=== PATIENT | male | born 1980 | race Caucasian/White ===

== ENCOUNTER 2017-03-17 13:00 | Emergency (ER) | payer BC, OTHER ==
--- NOTE | 2017-03-17 13:17 | PDOC ---
History of Present Illness - General Chief Complaint: Pain Stated Complaint: LEFT FOOT PAIN FOR 1 WEEK Time Seen by Provider: 03/17/17 13:06 History Source: Patient Exam Limitations: No Limitations - History of Present Illness Initial Comments: 03/17/17 13:08 03/17/17 13:11 This patient is an otherwise healthy 36-year-old male who presents emergency department with one week of left foot pain. Patient states he cannot remember any traumatic injuries, does state that possibly one week ago [place]. No bruising. No swelling. He has been taking Tylenol for pain with minimal relief. Patient states the pain is its worse when walking or when laying on his left side. PMH: denies (although, he states that he was told that he had renal insufficieny due to ASA) PSH: denies Meds: denies ALL: PCN --> unknown GENERAL/CONSTITUTIONAL: No: fever, chills, weakness, loss of appetite. MUSCULOSKELETAL: Yes: left foot pain No: back pain, neck pain, joint pain SKIN: No: lesions GENERAL: The patient is in no acute distress. EXTREMITIES: Normal range of motion, no edema, no bruising, no erythema, lateral metatarsal tenderness. 2+ DP, 2+ PT NEUROLOGICAL: sensation in tact, motor intact MUSCULOSKELETAL: Back non-tender to palpation, no CVA tenderness SKIN: Warm, Dry, normal turgor, no rashes or lesions noted. Past History - Past Medical History Allergies/Adverse Reactions: Allergies Allergy/AdvReac Type Severity Reaction Status Date / Time Penicillins Allergy Intermediate Rash Verified 03/17/17 13:06 Home Medications: Ambulatory Orders NK [No Known Home Medication] 03/17/17 Medical Decision Making - Medical Decision Making 03/17/17 13:17 Xray Will hold on motrin Will re assess *DC/Admit/Observation/Transfer Diagnosis at time of Disposition: Left foot pain - Discharge Dispostion Disposition: HOME Condition at time of disposition: Stable Admit: No - Referrals Referrals: Andrea Hinds MD [Staff Physician] - Eloy Aguirre MD [Staff Physician] - - Patient Instructions Printed Discharge Instructions: DI for Foot Pain Additional Instructions: Thank you for coming in to the ER today Please follow up with Ortho or podiatry Please return to the ER for any other concerns or complaints - Post Discharge Activity Work/School Note: Back to Work
[2017-03-17 13:28] VITALS: BP 128/69; PULSE 88; TEMP 98.2; BMI 27.8
== END 2017-03-17 14:06 | disposition home or self-care (01) ==
LOC: FER 13:00
DX: M79.672 Pain in left foot (principal); Z88.0 Allergy status to penicillin
CPT/HCPCS: 73630-TC-LT; 99282-25

== ENCOUNTER 2020-08-12 18:14 | Emergency (ER) | payer OTHER | END 2020-08-12 18:22 | disposition home or self-care (01) | LOC: JVIRT 18:14 | DX: Z20.822 Contact with and (suspected) exposure to COVID-19 (principal) | CPT/HCPCS: C9803; G2012-GT; U0003 ==

== ENCOUNTER 2022-08-01 10:52 | Emergency (ER) | payer OTHER ==
[2022-08-01 10:59] VITALS: BP 155/100; PULSE 118; RESP 18; TEMP 97.7; BMI 30.7
== END 2022-08-01 13:17 | disposition home or self-care (01) ==
LOC: JER 10:52
DX: F41.9 Anxiety disorder, unspecified (principal)
CPT/HCPCS: 99282-25

== ENCOUNTER 2022-10-15 04:59 | Day surgery (SDC) | payer OTHER ==
[2022-10-14 13:00] VITALS: BMI 32.1
[2022-10-15 14:35] VITALS: TEMP 97.1
[2022-10-15 15:10] VITALS: BP 127/90; PULSE 83; RESP 14
== END 2022-10-15 15:11 | disposition home or self-care (01) ==
LOC: JASU-ENDO 04:59
PROVIDERS: ATTEND Student in an Organized Health Care Education/Training Program
PROC: 0DB78ZX Excision of Stomach, Pylorus, Via Natural or Artificial Opening Endoscopic, Diagnostic (ICD-10-PCS; 2022-10-15)
PROC: 0DB68ZX Excision of Stomach, Via Natural or Artificial Opening Endoscopic, Diagnostic (ICD-10-PCS; 2022-10-15)
PROC: 0DB98ZX Excision of Duodenum, Via Natural or Artificial Opening Endoscopic, Diagnostic (ICD-10-PCS; principal; 2022-10-15 13:15)
DX: K25.9 Gastric ulcer, unspecified as acute or chronic, without hemorrhage or perforation (principal); K29.80 Duodenitis without bleeding; K20.90 Esophagitis, unspecified without bleeding; K29.50 Unspecified chronic gastritis without bleeding; B96.81 Helicobacter pylori [H. pylori] as the cause of diseases classified elsewhere
CPT/HCPCS: 88305-TC; 88342-TC

== ENCOUNTER 2022-12-31 04:55 | Day surgery (SDC) | payer OTHER ==
[2022-12-27 11:56] VITALS: BMI 32.1
[2022-12-31 09:10] VITALS: TEMP 98.1
[2022-12-31 15:26] VITALS: BP 105/75; PULSE 76; RESP 18
== END 2022-12-31 10:40 | disposition home or self-care (01) ==
LOC: JASU-ENDO 04:55
PROVIDERS: ATTEND Student in an Organized Health Care Education/Training Program
PROC: 0DB78ZX Excision of Stomach, Pylorus, Via Natural or Artificial Opening Endoscopic, Diagnostic (ICD-10-PCS; 2022-12-31)
PROC: 0DB68ZX Excision of Stomach, Via Natural or Artificial Opening Endoscopic, Diagnostic (ICD-10-PCS; principal; 2022-12-31 12:00)
DX: K29.50 Unspecified chronic gastritis without bleeding (principal); B96.81 Helicobacter pylori [H. pylori] as the cause of diseases classified elsewhere; K29.80 Duodenitis without bleeding; K20.90 Esophagitis, unspecified without bleeding
CPT/HCPCS: 88305-TC; 88342-TC

== ENCOUNTER 2023-05-01 05:08 | Day surgery (SDC) | payer OTHER ==
[2023-04-29 11:52] VITALS: BMI 33.5
[2023-05-01 09:01] LABS: PROTHROMBIN TIME (PATIENT) 11.6 SEC (9.7-13.0)
[2023-05-01 09:38] LABS: BASO % 0.9 % (0-2.0); EOS % 4.4 % (0-4.5); HEMATOCRIT 47.1 % (35.4-49); HEMOGLOBIN 16.3 GM/dL (11.7-16.9); MCH 32.1 pg (25.7-33.7); MCHC 34.7 g/dl (32.0-35.9); MEAN CELL VOLUME 92.5 fl (80-96); MEAN PLT VOLUME 8.4 fl (7.5-11.1); MONO % 6.6 % (3.8-10.2); NEUT % 53.1 % (42.8-82.8); PLATELET COUNT 189 10^3/uL (134-434); RDW 12.9 % (11.9-15.9); WHITE BLOOD COUNT 8.1 K/mm3 (4.0-10.0)
[2023-05-01] MEDS ORDERED: FENTANYL CITRATE/PF 50 MCG/ML VIAL ONE (10:42)
[2023-05-01] MEDS ORDERED: MIDAZOLAM HCL 2 MG/2 ML SINGLE DOSE VIAL ONE (10:42)
[2023-05-01] MEDS ORDERED: SODIUM CHLORIDE 500 ML IV SCH (10:50)
[2023-05-01] MEDS ORDERED: FENTANYL CITRATE/PF 50 MCG/ML VIAL IVPUSH ONE (11:00)
[2023-05-01] MEDS: MIDAZOLAM HCL 2 MG/2 ML SINGLE DOSE VIAL IVPUSH SCH ×2 (11:10→11:20)
[2023-05-01 13:08] VITALS: RESP 18
[2023-05-01 13:09] VITALS: TEMP 97.2
[2023-05-01 13:25] VITALS: BP 104/71; PULSE 87
== END 2023-05-01 13:47 | disposition home or self-care (01) ==
LOC: JRADIR 05:08
PROVIDERS: ATTEND Internal Medicine
PROC: 0TB13ZX Excision of Left Kidney, Percutaneous Approach, Diagnostic (ICD-10-PCS; principal; 2023-05-01)
DX: N05.8 Unspecified nephritic syndrome with other morphologic changes (principal); N08 Glomerular disorders in diseases classified elsewhere; N26.9 Renal sclerosis, unspecified; R80.9 Proteinuria, unspecified
CPT/HCPCS: 36415; 50200; 76942-TC; 77012-TC; 85025; 85610; 88300-TC; 88329